=== PATIENT | male | born 1945 | race Caucasian/White ===

== ENCOUNTER → 2018-11-10 | Outpatient (CLI) | payer OTHER, MEDICARE ==
[~2018-11-10] MED LIST: ASPIR 8181 MG PO; CLOPIDOGREL75 MG PO; EFFIENT10 MG PO; METOPROLOL SUC200 MG PO; NITROGLYCERIN0.4 MG SUBLING; PLAVIX 75 MG TA75 M1 PO; SIMVASTATIN40 MG PO
--- NOTE | 2018-11-10 12:21 | CARDNUC ---
[place] [address] CARDIAC NUCLEAR IMAGING REPORT Name: LESTER MUJICA JR Room: [facility]#: [id number] Admission: 11/10/18 Attend Phys: Jose Carlos Talamantes Discharge: Date of : 45 Date of Service: 11/10/18 1221 Report #: [id number] THIS REPORT FOR: //name// APPROVED REPORT Imaging Protocol: Rest Tc-99m/Stress Tc-99m 1 day Study performed: 11/10/2018 07:30:00 Indication: S/P Stent Patient Location: Out-Patient Stress Tech: Betty Mott Stress Nurse: Nita Nguyen RN NM Tech:KIRSTIN Jimenes Ht: 5 ft 7 in Wt: 210 lbs BSA: 2.07 m2 BMI: 32.88 Medical History Medical History: CAD s/p stent, HTN, Hyperlipidemia Medications: ASA 81 mg, Plavix, Metoprolol, NTG, Simvastatin Allergies: No known drug allergies Cardiac Risk Factors: Age, HTN, Hyperlipidemia Previous Cardiac Procedures: PCI Pretest Chest Pain Characteristics: No chest pain Exercise History: Indeterminate Physical Disabilities: Legs Meds Held (24 hrs): Metoprolol, NTG Meds Held (48 hrs): Metroprolol, NTG Resting Data Rest SPECT myocardial perfusion imaging was performed in supine position 30 minutes following the intravenous injection of 11.3 mCi of Tc-99m Sestamibi. Time of rest injection: 0745 Date: 11/10/2018 Time of rest imagin The images were gated to evaluate regional wall motion and calculate left ventricular ejection fraction. Administration Route: IV Administration Site: Right AC Pharmacologic Stress Pharmacologic stress test was performed by injecting Regadenoson 0.4 mg IV push over 10-15 seconds immediately followed by the intravenous injection of 34.7 mCi of Tc-99m [place] [address] CARDIAC NUCLEAR IMAGING REPORT Name: LESTER MUJICA JR Room: [facility]#: [id number] Admission: 11/10/18 Attend Phys: Jose Carlos Talamantes Discharge: Date of : 45 Date of Service: 11/10/18 1221 Report #: [id number] Time of stress injection: 0920 Time of stress imagin Administration Route: IV Administration Site: Right AC Gated Stress SPECT was performed 40 minutes after stress injection. The images were gated to evaluate regional wall motion and calculate left ventricular ejection fraction. Prone imaging was performed. Stress Test Details Stress Test: Pharmacologic stress testing performed using 0.4 mg of regadenoson per 5 mL given IV over 10 seconds. Reason for pharmacologic stress test: physical limitation, unstable legs/gait. HR Max Heart Rate (APMHR): 147 bpm Resting HR: 68 bpm Target HR (85% APMHR): 124 bpm Max HR Achieved: 93 bpm % of APMHR: 63 Recovery HR: 88 bpm BP Resting BP: 154/82 mmHg Max BP: 129/77 mmHg Recovery BP: 138/80 mmHg ECG Resting ECG: Sinus Rhythm Stress ECG: Sinus Rhythm ST Change: None Arrhythmia: None Recovery ECG: Sinus Rhythm Recovery ST Change: None Recovery Arrhythmia: None Clinical Reason for Termination: Completed protocol Stress Symptoms: None Exercise duration: 0 min 0 sec Exercise capacity: 1.00 METs The patient had no significant symptoms with Lexiscan infusion. Nurse Comments 73 year old male presented for Lexiscan stress test. Patient stated he could not walk on treadmill r/t weakness in legs, [place] [address] CARDIAC NUCLEAR IMAGING REPORT Name: LESTER MUJICA JR Room: [facility]#: [id number] Admission: 11/10/18 Attend Phys: Jose Carlos Talamantes Discharge: Date of : 45 Date of Service: 11/10/18 1221 Report #: [id number] viewed with an unsteady gait by staff. Patient tolerated sitting lexiscan well with no symptoms reported. Recovery unremarkable. Patient escorted by staff to Nuclear Medicine for images. Patient stable with no complaints at that time. Stress ECG Conclusion Baseline 12-lead EKG shows sinus rhythm without acute ST or T wave abnormality. EKGs obtained during and post Lexiscan infusion show sinus rhythm with no significant ST or T wave changes when compared to baseline. Study Quality Study: Good Artifact: No artifact Study Data At rest, the left ventricular ejection fraction was 48%.. Post stress, the left ventricular ejection was 37%.. TID = 1.07. Perfusion There is a large in size severe intensity defect that is fixed involving the basal to mid inferior and inferolateral wall. Spontaneous consistent with prior infarct. Additionally there is a moderate size moderate intensity reversible defect noted to extend from the mid to apical lateral and anterolateral wall. No other fixed or reversible defects were identified. Wall Motion There is significant hypokinesis involving the inferolateral wall especially towards the apex. The mid to apical lateral wall also appears severely hypokinetic. Nuclear Conclusion ECG Findings: negative for ischemia Clinical Findings: negative for ischemia Nuclear Findings: positive for ischemia Exercise Capacity: not assessed Left Ventricular Function: abnormal Risk Study: high Perfusion images suggest prior infarct involving the basal to mid inferolateral and lateral wall. There appears to be a moderate region of ischemia involving the mid to apical anterior and anterolateral wall. Left particular systolic function is moderately decreased with wall motion abnormalities as outlined above. This is [place] [address] CARDIAC NUCLEAR IMAGING REPORT Name: LESTER MUJICA JR Room: [facility]#: [id number] Admission: 11/10/18 Attend Phys: Jose Carlos Talamantes Discharge: Date of : 45 Date of Service: 11/10/18 1221 Report #: [id number] <Conclusion> Baseline 12-lead EKG shows sinus rhythm without acute ST or T wave abnormality. EKGs obtained during and post Lexiscan infusion show sinus rhythm with no significant ST or T wave changes when compared to baseline. <ELECTRONICALLY SIGNED> By: Rene Ji MD, FACC 11/10/18 122 20 20 Rene Ji MD, FACC /INF
== END ==
LOC: M.NUC 07:23
DX: I25.10 Atherosclerotic heart disease of native coronary artery without angina pectoris (principal); Z95.5 Presence of coronary angioplasty implant and graft; E78.5 Hyperlipidemia, unspecified; I10 Essential (primary) hypertension

== ENCOUNTER → 2018-12-01 | Outpatient (CLI) | payer OTHER, MEDICARE ==
[2018-12-01] VITALS (7 sets, daily range): BP systolic 105–132; BP diastolic 42–87
[~2018-12-01] VITALS: Ht 170.2 cm; Wt 90.7 kg
[2018-12-01 12:02] LABS: HEMATOCRIT 47.6 % (42.0-52.0); HEMOGLOBIN 16.3 gm/dL (14.0-18.0); MCH 30.4 pg (26.0-34.0); MCHC 34.3 g/dL (28.0-37.0); MCV 88.7 fL (80.0-100.0); MPV 8.1 fl. (7.2-11.1); RBC 5.36 mil/uL (4.50-6.00); RDW-CV 14.1 % (10.5-14.5); WBC 7.4 thou/uL (4.0-11.0)
[2018-12-01 12:07] LABS: ANION GAP 6 mmol/L (7-16); BUN 18 mg/dL (7-18); CALCIUM 8.7 mg/dL (8.5-10.1); CHLORIDE 99 mmol/L (98-107); CO2 30 mmol/L (21-32); CREATININE 1.2 mg/dL (0.6-1.3); GLUCOSE 380 mg/dL (70-99); POTASSIUM 4.5 mmol/L (3.5-5.1); SODIUM 135 mmol/L (136-145)
[2018-12-01 12:08] LABS: APTT 27.9 Seconds (25.0-31.3); PROTIME 10.3 Seconds (9.20-11.50)
[2018-12-01 12:12] LABS: ALBUMIN 3.1 g/dL (3.4-5.0); ALKALINE PHOSPHATASE 91 U/L (46-116); CHOLESTEROL 136 mg/dL (<200); HDL CHOLESTEROL 31 mg/dL (>40); LDL CHOLESTEROL 67 mg/dL (<100); SGOT 15 U/L (15-37); SGPT 29 U/L (30-65); TC:HDL 4.4 Ratio (Not establshd); TOTAL BILIRUBIN 0.5 mg/dL (<0.1-1.0); TRIGLYCERIDE 190 mg/dL (<150); VLDL 38 mg/dL (<40)
[2018-12-01 12:14] LABS: SERUM ASSESSMENT Clear
--- NOTE | 2018-12-01 18:10 | EKG ---
[place] [address] ELECTROCARDIOGRAM REPORT Name: LESTER MUJICA JR Room: [facility]#: [id number] Admission: 12/01/18 Attend Phys: Lester Alas MD, Discharge: Date of : 45 Report #: [id number] THIS REPORT FOR: //name// [facility] Test Date: 2018-12-01 Test Time: 12:43:41 Pat Name: LESTER MUJICA Department: Room: Gender: M Twist Maker: JG : 1945 Requested By: Lester Alas Order Number: [id number] Reading MD: Rene Ji Measurements Intervals [place] Rate: 67 P: 17 NM: 254 QRS: 21 QRSD: 100 T: 81 QT: 429 QTc: 453 Interpretive Statements Sinus rhythm Prolonged NM interval Inferior infarct, old Compared to ECG 03/21/2017 08:03:39 No significant changes Electronically Signed On 12-01-2018 18:09:59 PRESSURE CONTROLLER by Rene Ji [email or web address] <ELECTRONICALLY SIGNED> By: Rene Ji MD, [facility] 12/01/18 1809 1243 1243 Rene Ji MD, FACC /EPI
--- NOTE | 2018-12-02 13:54 | CARD ---
[address] [address] CARDIAC CATH REPORT Name: LESTER MUJICA JR Room: [facility]#: [id number] Admission: 12/01/18 Attend Phys: Lester Alas MD, Discharge: Date of : 45 Report #: [id number] THIS REPORT FOR: //name// APPROVED REPORT Study performed: 12/01/2018 13:50:36 Patient Details Patient Status: Out-Patient Room #: The patient is a 73 year-old male Event Personnel Lester Alas Aged Or Disabled Care Worker, Leonora JonesIS Monitor, Fer Escalante,, Nereida Washburn RN Cad Cam Programmer Procedures Performed Left Heart Cath w/or w/o Coronaries [id number] [facility] Hemostasis w/ Mynx Indication Positive stress test Risk Factors Hypercholesterolemia, Hypertension Previous Procedures/Diagnoses Previous PCI Procedure Narrative The patient was brought electively to the Cardiac Catheterization Laboratory and was prepped and draped in a sterile manner. The right femoral was infiltrated with 2% Lidocaine subcutaneous anesthesia. A [place] 6 FR sheath was inserted into the right femoral artery. Coronary angiography was performed using coronary diagnostic catheters. The right coronary system was accessed and visualized with a 6FR JR4 catheter. The left coronary system was accessed and visualized with a 6FR JL4 catheter. The left ventricle was accessed and visualized with a PIG catheter. Left ventricular/Aortic Valve gradient assessed via catheter pullback. The patient tolerated the procedure well and there were no complications associated with the procedure. Intraoperative Conscious Sedation Fentanyl [address] [place] [address] CARDIAC CATH REPORT Name: LESTER MUJICA JR Room: [facility]#: [id number] Admission: 12/01/18 Attend Phys: Lester Alas MD, Discharge: Date of : 45 Report #: [id number] Dose: 971 mGy Contrast Type and Amount: Visipaque 100 ml Coronary Angiography The patient's coronary anatomy is right dominant. Diagnostic Cath Left Main 0% narrowing LAD 30% proximal mid and distal LAD narrowing with widely patent stents Circumflex 30% proximal narrowing of the small nondominant vessel Right Coronary Dominant vessel with 40% mid vessel narrowing with a widely patent distal right coronary stent and 30% distal right coronary and posterolateral branch narrowings Left Ventriculography Ejection Fraction was 45% based off patient's . The left ventricle is normal in size with contractility. Left ventricular wall motion abnormalities are present. There is no mitral insufficiency. Mild anterolateral and inferobasilar hypokinesis is noted Hemodynamics The aortic pressure is 144/74 mmHg with a mean of 92 mmHg. The left ventricular pressure is 143/3 mmHg with a mean of mmHg. The left ventricular end diastolic pressure is 17 mmHg. There was no gradient across the aortic valve upon pullback. Conclusion #1 moderate coronary artery disease characterized by the following: A 30% proximal mid and distal LAD narrowing with widely patent LAD stents B 30% narrowing of the proximal portion of the nondominant circumflex C dominant right coronary artery with 40% mid vessel narrowing and 30% distal right coronary artery and posterolateral branch narrowings #2 mild impairment in global left ventricular systolic function, estimated ejection fraction of 45% with mild anterolateral and [place]ob[place] [address] CARDIAC CATH REPORT Name: LESTER MUJICA JR Room: [facility]#: [id number] Admission: 12/01/18 Attend Phys: Lester Alas MD, Discharge: Date of : 45 Report #: [id number] #3 mild elevation of left ventricular end-diastolic pressure at rest Recommendations Cardiac Risk Reduction Program Aggressive Medical Therapy Diagnostic Cath Approved by: Lester Alas MD Date/Time: 12/02/2018 13:53:00 <ELECTRONICALLY SIGNED> By: Lester Alas MD, FACC 12/02/18 1353 1353 1353Lester Alas MD, FACC /INF
== END | disposition home or self-care (01) ==
LOC: M.CL 10:55
PROVIDERS: Internal Medicine
DX: I25.10 Atherosclerotic heart disease of native coronary artery without angina pectoris (principal); I10 Essential (primary) hypertension; E78.00 Pure hypercholesterolemia, unspecified; Z96.643 Presence of artificial hip joint, bilateral; Z79.82 Long term (current) use of aspirin; Z79.899 Other long term (current) drug therapy